=== PATIENT | male | born 1985 | race Two or more races ===

== ENCOUNTER 2017-07-03 13:20 | Emergency (ER) | payer MEDICAID ==
[~2017-07-03] VITALS: Ht 185.4 cm; Wt 95.3 kg
[2017-07-03 13:35] VITALS: BP 132/78
[2017-07-03] MEDS ORDERED: Metoclopramide 10mg/10ml Liq ORAL ONE (13:45)
--- NOTE | 2017-07-03 14:12 | Emergency Room Report ---
History of Present Illness General Chief Complaint: Headache Source: Patient Present Illness HPI 31-year-old male presents to the emergency department complaining of increased frequency of left-sided throbbing headaches. Patient reports his pain is 10 out of 10 in severity denies visual symptoms such as photophobia, diplopia, loss of vision. Patient denies tinnitus or hyperacusis. Patient reports he has a history of testicular cancer which was removed in 2004 and also required noted decision. 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 Patient is worried about the increase in frequency of his migraines to almost daily and wants to make sure there is no abnormalities in his brain. Denies unilateral weaknesses, trauma or fall. Denies nausea, vomiting, fevers, chills, neck pain /stiffness, recent changes in weight, night sweats. Patient denies sudden onset of his headaches states they are progressive , and he usually has to make a combination of Tylenol and Motrin for relief. he denies changes in character to his daily headaches. Denies CP, Palpitations, LOC, AMS, dizziness, Changes in Vision, Sensation, paresthesias, or a sudden severe headache. Allergies: Coded Allergies: No Known Allergies (Unverified , 07/03/17) Patient History Past Medical History: see triage record Past Surgical History: none Pertinent Family History: none Immunizations: UTD Reviewed Nursing Documentation: PMH: Agreed, PSxH: Agreed Nursing Documentation-PMH Past Medical History: No History, Except For Hx Cardiac Problems: No - testicilar cancer , headaches Review of Systems All Other Systems: negative except mentioned in HPI Physical Exam Vital Signs Date Time Temp Pulse Resp B/P (MAP) Pulse Ox O2 Delivery O2 Flow Rate FiO2 07/03/17 13:26 98.4 68 22 132/78 98 Room Air Sp02 EP Interpretation: reviewed, normal General Appearance: no apparent distress, alert, GCS 15, non-toxic Head: normocephalic, atraumatic Eyes: left eye PERRL - 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 , reactive to both direct and indirect stimuli, bilateral eye normal inspection, bilateral eye EOMI ENT: hearing grossly normal, normal voice Neck: full range of motion, no bony tend, supple/symm/no masses Respiratory: lungs clear, normal breath sounds, speaking full sentences Cardiovascular #1: regular rate, rhythm Gastrointestinal: non tender, soft Musculoskeletal: back normal, gait/station normal, normal range of motion, non- tender Neurologic: alert, oriented x3, responsive, motor strength/tone normal, sensory intact, normal gait, speech normal, no pronator Psychiatric: judgement/insight normal, memory normal, mood/affect normal Skin: normal color, no rash, warm/dry, well hydrated Medical Decision Making PA Attestation Dr. Del Cid is my supervising Physician whom patient management has been discussed with. Diagnostic Impression: Primary Impression: Headache Qualified Codes: R51 - Headache ER Course 31-year-old male presents to the emergency department complaining of increased frequency of left-sided throbbing headaches. Patient reports his pain is 10 out of 10 in severity denies visual symptoms such as photophobia, diplopia, loss of vision. Patient denies tinnitus or hyperacusis. Patient reports he has a history of testicular cancer which was removed in 2004 and also required noted decision. 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 Patient is worried about the increase in frequency of his migraines to almost daily and wants to make sure there is no abnormalities in his brain. Denies unilateral weaknesses, trauma or fall. Denies nausea, vomiting, fevers, chills, neck pain /stiffness, recent changes in weight, night sweats. Patient denies sudden onset of his headaches states they are progressive , and he usually has to make a combination of Tylenol and Motrin for relief. he denies changes in character to his daily headaches. Denies CP, Palpitations, LOC, AMS, dizziness, Changes in Vision, Sensation, paresthesias, or a sudden severe headache. Ddx considered but are not limited to migraine, SAH, Psedudo motor Cerebri, Mass lesion, Cluster SOTO, Tension SOTO, Post lumbar puncture SOTO. Vital signs: are WNL, pt. is afebrile H&PE are most consistent with chronic daily headaches, no neurological deficit, no evidence of infection. ORDERS: - CT Head No Contrast: No evidence of acute fracture, hemorrhage, or intracranial process --Per: Official Radiology report. ED INTERVENTIONS: - Reglan PO -Tylenol PO ---Pt. reports that his SOTO was relieved with reglan and tylenol po. -d/w pt. the results of his imaging. d/w pt. to have proper Neurology and Oncology follow up within 3-5 days. Pt. was given ED return precautions. DISCHARGE: At this time pt. is stable for d/c to home. Will provide printed patient care instructions, and any necessary prescriptions. Care plan and follow up instructions have been discussed with the patient prior to discharge. Last Vital Signs Date Time Temp Pulse Resp B/P (MAP) Pulse Ox O2 Delivery O2 Flow Rate FiO2 07/03/17 13:35 22 132/78 98 Room Air 07/03/17 13:26 98.4 68 Disposition: HOME, SELF-CARE Condition: Stable Scripts Metoclopramide Hcl* (REGLAN*) 10 Mg Tablet 10 MG ORAL THREE TIMES A DAY Y for For Headache, #20 TAB Prov: Khadijah Shafer 07/03/17 Referrals: [facility],REFERRING (PCP) Patient Instructions: Migraine Headache Additional Instructions: Take medications as directed. Follow up with a NEUROLOGIST and ONCOLOGIST in 3-5 days, even if your symptoms have resolved. --Please contact your primary care provider as you may need to be given a referral to see the specialist. Return sooner to ED if new symptoms occur, or current symptoms become worse. - Please note that this Emergency Department Report was dictated using [employer] personal technology software, occasionally this can lead to erroneous entry secondary to interpretation by the dictation equipment. Khadijah Shafer Jul 03, 2017 14:12
--- NOTE | 2017-07-03 14:30 | Diagnostic Imaging Report ---
Indication: PAIN headache Technique: Continuous helical CT scanning of the head was performed without intravenous contrast material. Axial and coronal 5 mm sections were generated. Radiation dose was minimized using automated exposure control Dose: Total Dose Length Product - DLP [address] Dose Index - CTDIvol(s) 70.38 mGy. Comparison: None Findings: The ventricular system is normal in size and configuration. There is no shift of midline structures. No abnormal extra-axial fluid collections are noted. There is no evidence of intracerebral bleeding. No other abnormal high or low density areas are noted within the brain. The calvarium is intact. The sinuses are clear. The orbits are unremarkable. The mastoids are clear Impression: Normal CT scan of the head without contrast material. The CT scanner at [facility] is accredited by the [employer] and the scans are performed using protocols designed to limit radiation exposure to as low as reasonably achievable to attain images of sufficient resolution adequate for diagnostic evaluation.
[2017-07-03] MEDS ORDERED: REGLAN10 MG ORAL (14:38)
[2017-07-03 14:42] VITALS: BP 129/72
== END 2017-07-03 14:42 | disposition home or self-care (01) ==
LOC: EMR 13:45
DX: R51 Headache (principal); Z85.47 Personal history of malignant neoplasm of testis
CPT/HCPCS: 70450; 99284